=== PATIENT | male | born 1945 | race Caucasian/White ===

== ENCOUNTER → 2016-10-07 | Outpatient (CLI) | payer OTHER, MEDICARE | LOC: CIMAGING 10:01 | PROVIDERS: ATTEND Internal Medicine | DX: M25.561 Pain in right knee (principal) | CPT/HCPCS: 73562-PO ==

== ENCOUNTER → 2016-10-19 | Outpatient (CLI) | payer OTHER, MEDICARE | LOC: FIMAGING 07:15 | PROVIDERS: ATTEND Internal Medicine | DX: S83.281A Other tear of lateral meniscus, current injury, right knee, initial encounter (principal) ==

== ENCOUNTER 2017-05-16 17:28 | Emergency (ER) | payer OTHER, MEDICARE ==
--- NOTE | 2017-05-16 18:04 | EDPHY ---
H & P Stated Complaint: hx parkinsons/balance issues fell hit face on concrete/no loc Time Seen by Provider: 05/16/17 17:31 HPI/ROS: CHIEF COMPLAINT: Facial head injury HISTORY OF PRESENT ILLNESS: 72-year-old male arrives via private vehicle with family members, not a trauma activation complaining of facial injury. He states that earlier this afternoon he was walking and sustained a mechanical fall. This was not a syncopal episode. He notes baseline of ambulation issues secondary to his Parkinson's disease history. He sustained laceration to his left upper lip, seen by his PCP and referred to the ER for further evaluation. No loss of consciousness. No midline C-spine pain. No headache. No nausea or vomiting. No amnesia. No dental malalignment. No intraoral bleeding. PRIMARY CARE PROVIDER:Dr. Tc Carranza REVIEW OF SYSTEMS: A ten point review of systems was performed and is negative with the exception of the items mentioned in the HPI PAST MEDICAL/SURGICAL HISTORY: no anticoagulant use, Parkinson's disease SOCIAL HISTORY: denies alcohol use at time of incident PHYSICAL EXAM 1) GENERAL: Well-developed, well-nourished, alert and oriented. Appears to be in no acute distress. Answering questions appropriately. GCS 15 2) HEAD: Normocephalic, atraumatic 3) HEENT: Pupils equal, round, reactive to light bilaterally. Left infraorbital ecchymosis. Negative Horners. Nasopharynx, oropharynx, clear. No deformity or angulation of nose. No septal hematoma. No rhinorrhea. No oral trauma. Extraocular movements do not elicit abnormal gaze or diplopia Ears bilaterally with normal tympanic membranes. No hemotympanum. No fluid or blood in the external auditory canal. No raccoon eyes. No Farah sign. Left upper lip laceration measuring 2 cm, not crossing the vermilion border, through and through. Teeth are normally aligned with no gross malocclusion, TMJ bilaterally nontender, facial bones nontender including the zygomatic arch, maxilla mandible. 4) NECK: No cervical collar is on. Posterior cervical spine is nontender, no stepoff, no effusion. Full range of motion which does not elicit any midline cervical spine pain, no posterior midline tenderness, no step-off. 5) LUNGS: Clear to auscultation bilaterally, no wheezes, no rhonchi, no retractions. No obvious signs of trauma. No chest wall pain. No flaring, no grunting. Moving symmetrically. No crepitus. 6) HEART: [Regular rate and rhythm, 7) ABDOMEN: No guarding, no rebound, no focal tenderness, no peritoneal signs, no signs of trauma, no ecchymosis 8) MUSCULOSKELETAL: Abrasion to bilateral dorsal hand with no underlying osseous discomfort. No deformity no angulation normal cascading of digits. Otherwise, Moving all extremities, no focal areas of tenderness, no obvious trauma. 9) BACK: No midline vertebral tenderness, no fluctuance, no step-off, no obvious trauma, no visual or palpable abnormality. 10) SKIN: Laceration left upper lip DIFFERENTIAL DIAGNOSIS: Not necessarily in any particular order, my differential diagnosis includes, but is not limited to, concussion, skull fracture, intraparenchymal contusion, subarachnoid, subdural and epidural hematoma. The patient understands that this diagnosis is provisional and can never be 100% accurate. - Personal History Current Tetanus/Diphtheria Vaccine: Yes - Medical/Surgical History Hx Asthma: No Hx Chronic Respiratory Disease: No Hx Diabetes: No Hx Cardiac Disease: No Hx Renal Disease: No Hx Cirrhosis: No Hx Alcoholism: No Hx HIV/AIDS: No Hx Splenectomy or Spleen Trauma: No Other PMH: parkinsons/pituitary tumor - Social History Smoking Status: Never smoked Constitutional: Initial Vital Signs Temperature (C) 36.5 C 05/16/17 17:41 Heart Rate 53 L 05/16/17 17:41 Respiratory Rate 18 05/16/17 17:41 Blood Pressure 124/88 H 05/16/17 17:41 O2 Sat (%) 96 05/16/17 17:41 O2 Delivery Mode Room Air Allergies/Adverse Reactions: No Known Allergies Allergy (Unverified 05/16/17 17:39) Home Medications: Medication Instructions Recorded Cortisone 05/16/17 Levothyroxine 05/16/17 Propranolol Sr 05/16/17 Sinemet 10/100 MG (*) 05/16/17 TESTOSTERONE 05/16/17 Medical Decision Making - Diagnostics Imaging Results: Imaging Impressions Head CT 05/16/17 18:03 Impression: 1. Negative for posttraumatic sequela, specifically negative for fracture or intracranial bleed. 2. Elderly brain with atrophy and probable white matter small vessel disease. 3. Chronic sinus inflammatory changes. 4. See above report for additional findings. Results called and discussed with Gary RODRIGUEZ on 05/16/2017 at 18:48 Images reviewed by myself Procedures: Procedure: Laceration repair. I explained the indications, risks and benefits for both laceration repair and anesthetic administration. Verbal consent was obtained from the patient . The laceration on the left upper lip was anesthetized using 0.5% bupivicaine with epinephrine . After anesthetic administered the patient was observed for a period of time and had no apparent adverse effects. The wound was cleaned, prepped, draped in normal sterile fashion and explored to its base. No foreign body seen, no foreign bodies palpated. This is a through and through laceration. This closed in multiple layers. The middle layer closed with 1 simple interrupted 5 0 Vicryl suture, the buccal mucosa closed with 2 simple interrupted 5 0 Vicryl suture, the skin closed with 5 simple interrupted 6 0 Prolene suture The wound repair was complex. The procedure was performed by myself. Patient has been informed that scarring will occur, although efforts have been made to minimize this. ED Course/Re-evaluation: 6:04 p.m.:Head CT ordered in this patient for trauma for the following indication: Greater than 65 years old, anticoagulated. 7:03 p.m.: The patient was re-evaluated with serial examinations. Discussed his CT imaging which is negative for posttraumatic sequelae. He remains answering questions appropriately time, GCS 15. Plan will be discharge, return to the ER in 5 days for suture removal, usual customary head injury precautions instructions. Patient and family feel comfortable with this discharge plan and instructions. Care of patient under supervision of secondary supervising physician Dr Felipe Valencia. Departure - Departure Disposition: Home, Routine, Self-Care Clinical Impression: History of Parkinson's disease Head injury due to trauma Qualifiers: Encounter type: initial encounter Qualified Code(s): S09.90XA - Unspecified injury of head, initial encounter Lip laceration Qualifiers: Encounter type: initial encounter Qualified Code(s): S01.511A - Laceration without foreign body of lip, initial encounter Condition: Good Instructions: Head Injury (ED), Laceration (ED), Care For Your Stitches (ED) Additional Instructions: ALTHOUGH THERE IS NO EVIDENCE OF SERIOUS HEAD INJURY AT THIS TIME, DELAYED SIGNS CAN APPEAR 24 TO 48 HOURS AFTER INJURY. WE RECOMMEND THAT YOU DESIGNATE A FRIEND OR FAMILY MEMBER TO OBSERVE YOU OVER THE NEXT FEW DAYS TO ENSURE THAT YOUR CONDITION IS PROGRESSING NORMALLY. PLEASE RETURN TO THE EMERGENCY DEPARTMENT (ED) IMMEDIATELY IF YOU HAVE INCREASED HEADACHE, PERSISTENT HEADACHE , VOMITING, WEAKNESS, CONFUSION OR VISUAL PROBLEMS. WE RECOMMEND THAT YOU DO NOT RESUME CONTACT SPORTS OR ACTIVITIES THAT TAKE COORDINATION OR BALANCE SUCH SKIING OR RIDING A BICYCLE UNTIL CLEARED TO DO SO BY YOUR DOCTOR OR BY A NEUROLOGIST. Referrals: return, to the ER in 5 days for suture removal [Other] - As per Instructions
[2017-05-16 19:28] VITALS: BP 120/73; PULSE 55; RESP 16; TEMP 97.9; O2SAT 94
== END 2017-05-16 19:28 | disposition home or self-care (01) ==
PROC: 0CQ00ZZ Repair Upper Lip, Open Approach (ICD-10-PCS; principal; 2017-05-16)
DX: S01.511A Laceration without foreign body of lip, initial encounter (principal); G20 Parkinson's disease; W01.198A Fall on same level from slipping, tripping and stumbling with subsequent striking against other object, initial encounter; Y99.8 Other external cause status; Y93.01 Activity, walking, marching and hiking

== ENCOUNTER → 2017-09-13 | Outpatient (CLI) | payer OTHER, MEDICARE | LOC: CIMAGING 14:11 | PROVIDERS: ATTEND Internal Medicine | DX: M51.36 Other intervertebral disc degeneration, lumbar region (principal) | CPT/HCPCS: 72100-PO ==

== ENCOUNTER → 2018-03-28 | Outpatient (CLI) | payer OTHER, MEDICARE | LOC: CIMAGING 12:31 | PROVIDERS: ATTEND Internal Medicine | DX: M79.661 Pain in right lower leg (principal) | CPT/HCPCS: 73590-PO; 93971-PO ==

== ENCOUNTER 2018-05-25 19:44 | Emergency (ER) | payer OTHER, MEDICARE ==
--- NOTE | 2018-05-25 20:30 | EDPHY ---
H & P Stated Complaint: mechnical fall, lip laceration Time Seen by Provider: 05/25/18 20:22 HPI/ROS: CHIEF COMPLAINT: Lip laceration HISTORY OF PRESENT ILLNESS: Patient is a 73-year-old man with Parkinson's who was outside and slipped and fell. He hit his upper lip on the ground. He has a laceration to the right upper lip. No dental pain or laxity. He did not hit his head and denies headache or neck pain. He did not lose consciousness. His states that he was wearing thick winter clothing that cushion to his fall. He has some mild pain in his left elbow bruising but no abrasion or laceration. Normal range of motion. He is not on blood thinners. Severity: Moderate Modifying factors: None REVIEW OF SYSTEMS: Constitutional: denies: chills, fever, recent illness, recent injury EENTM: denies: blurred vision, double vision, nose congestion Respiratory: denies: cough, shortness of breath Cardiac: denies: chest pain, irregular heart rate, lightheadedness, palpitations Gastrointestinal/Abdominal: denies: abdominal pain, diarrhea, nausea, vomiting, blood streaked stools Genitourinary: denies: dysuria, frequency, hematuria, pain Musculoskeletal: denies: joint pain, muscle pain Skin: See HPI Neurological: denies: headache, numbness, paresthesia, tingling, dizziness, weakness Hematologic/Lymphatic: denies: blood clots, easy bleeding, easy bruising Immunologic/allergic: denies: HIV/AIDS, transplant 10 systems reviewed and negative except as noted EXAM: GENERAL: Well-appearing, well-nourished and in no acute distress. HEAD: Atraumatic, normocephalic. EYES: Pupils equal round and reactive to light, extraocular movements intact, sclera anicteric, conjunctiva are normal. ENT: TMs normal, nares patent, oropharynx clear without exudates. Moist mucous membranes. NECK: Normal range of motion, supple without lymphadenopathy or JVD. LUNGS: Breath sounds clear to auscultation bilaterally and equal. No wheezes rales or rhonchi. HEART: Regular rate and rhythm without murmurs, rubs or gallops. ABDOMEN: Soft, nontender, normoactive bowel sounds. No guarding, no rebound. No masses appreciated. BACK: No CVA tenderness, no spinal tenderness, step-offs or deformities EXTREMITIES: Normal range of motion, no pitting or edema. No clubbing or cyanosis. NEUROLOGICAL: Cranial nerves II through XII grossly intact. Normal speech, normal gait. 5/5 strength, normal movement in all extremities, normal sensation , normal reflexes PSYCH: Normal mood, normal affect. SKIN: Right upper lip laceration, does not involve the vermilion border. [place]-shaped. 1 cm in length. Not through and through. Mild swelling. Source: Patient Exam Limitations: No limitations - Personal History Current Tetanus Diphtheria and Acellular Pertussis (TDAP): Yes - Medical/Surgical History Hx Asthma: No Hx Chronic Respiratory Disease: No Hx Diabetes: No Hx Cardiac Disease: No Hx Renal Disease: No Hx Cirrhosis: No Hx Alcoholism: No Hx HIV/AIDS: No Hx Splenectomy or Spleen Trauma: No Other PMH: parkinsons/pituitary tumor, disc issues in back l4/l5 - Family History Significant Family History: No pertinent family hx - Social History Smoking Status: Never smoked Alcohol Use: None Constitutional: Initial Vital Signs Temperature (C) 36.6 C 05/25/18 19:55 Heart Rate 80 05/25/18 19:55 Respiratory Rate 18 05/25/18 19:55 Blood Pressure 141/93 H 05/25/18 19:55 O2 Sat (%) 94 05/25/18 19:55 O2 Delivery Mode Room Air Allergies/Adverse Reactions: No Known Allergies Allergy (Verified 05/25/18 19:58) Home Medications: Medication Instructions Recorded Cortisone 05/16/17 Levothyroxine 05/16/17 Propranolol Sr 05/16/17 Sinemet 10/100 MG (*) 05/16/17 TESTOSTERONE 05/16/17 Medical Decision Making Procedures: Procedure: Laceration repair. Verbal consent was obtained from the patient. The 1 cm hip laceration was anesthetized with 1% lidocaine with epi and bicarbonate locally infiltrated. The wound was irrigated copiously according to protocol, draped and explored to its base. It was approximately 1/2 cm deep. There were no deep structures involved. No tendon, nerve, or vascular injury was identified when explored through full range of motion. No foreign body was identified. The wound was repaired with 5.0 fast-absorbing gut, 3 sutures, interrupted. The wound repair was moderately complex with some flap alignment. The procedure was performed by myself. A dressing was then placed with sterile gauze. ED Course/Re-evaluation: Patient tolerated laceration repair well. He continues to deny headache or neck pain or other injuries. He is feel safe going home and declines further observation or workup. Differential Diagnosis: Partial list of the Differential diagnosis considered include but were not limited to; laceration, dental injury and although unlikely based on the history and physical exam, I also considered head injury, neck injury, syncope. I discussed these differential diagnoses and the plan with the patient as well as the usual and expected course. The patient understands that the diagnosis is provisional and that in medicine we are not always correct and that further workup is often warranted. Usual and customary warnings were given. All of the patient's questions were answered. The patient was instructed to return to the emergency department should the symptoms at all worsen or return, otherwise to followup with the physician as we discussed. Departure - Departure Disposition: Home, Routine, Self-Care Clinical Impression: Lip laceration Condition: Fair Instructions: Care For Your Absorbable Stitches (ED) Additional Instructions: If your stitches do not dissolve in 5 or 6 days return to have them removed. Referrals: NADINE WILEY [Other] - As per Instructions
[2018-05-25 21:28] VITALS: BP 108/82
== END 2018-05-25 21:28 | disposition home or self-care (01) ==
PROC: 0CQ0XZZ Repair Upper Lip, External Approach (ICD-10-PCS; principal; 2018-05-25)
DX: S01.511A Laceration without foreign body of lip, initial encounter (principal); G20 Parkinson's disease; W01.0XXA Fall on same level from slipping, tripping and stumbling without subsequent striking against object, initial encounter; Y92.9 Unspecified place or not applicable; Y93.9 Activity, unspecified; Y99.9 Unspecified external cause status